=== PATIENT | female | born 2005 | race Caucasian/White ===

== ENCOUNTER 2024-11-05 09:39 | Emergency (ER) | payer SELFPAY ==
[~2024-11-05] VITALS: Ht 149.9 cm; Wt 48.0 kg
[2024-11-05 09:44] VITALS: O2SAT 99
[2024-11-05 09:46] VITALS: BP 106/62; PULSE 65; RESP 18; TEMP 36.8; O2SAT 100
[2024-11-05] MEDS: DEXAMETHASONE 4MG/ML 1ML VIAL IM ONE (10:23)
== END 2024-11-05 13:02 | disposition home or self-care (01) ==
LOC: ER 09:39
DX: T40.711A Poisoning by cannabis, accidental (unintentional), initial encounter (principal); X58.XXXA Exposure to other specified factors, initial encounter
CPT/HCPCS: 99283; 93005; 96372; J1100